=== PATIENT | male | born 1995 | race Caucasian/White ===

== ENCOUNTER 2022-12-09 09:18 | Outpatient (CLI) | payer OTHER ==
[2022-12-09 10:08] VITALS: BP 122/78
--- NOTE | 2022-12-09 10:08 | SLEEP CARE CONSULTATION ---
Information from patient questionnaire entered by Sherron Horton. I have reviewed and concur with the information entered by Sherron Horton. This document represents the service I personally performed and the decisions made by me, Vianney Velez ARNP. History of Present Illness Service Date and Time: 12/09/2022 0918 Reason for Visit: New patient Chief Complaint: reports: Unrefreshed sleep, Snoring, Fatigue Date of Onset: 04/2021 Usual bedtime: 2200 Time it takes to fall asleep: 30-60MIN Snores at night: Yes Observed to quit breathing while asleep: Yes Sleeps alone due to snoring: No Number of times waking at night: 3-4 Reasons for waking at night: reports: Snoring, Gasping for air (infrequent with snoring), Other (UNKNOWN). denies: Choking Toss, Turn, or Twitch while sleeping: No Recalls having dreams: Yes Usually gets out of bed at: 0700, sometimes earlier for work Feels refreshed in the morning: No Morning headache: Yes (1 time a week; RESOLVES 1-2HRS) Sleepy or fatigued during the day: Yes Ever fallen asleep while driving: No Takes day naps: Yes (2-3 times a week; lasts 1 hr or less) Dreams during day naps: Yes Prior sleep studies: No Additional HPI information: I had the pleasure of seeing OMID SANDY today regarding the possibility of him having a sleep disorder. His current complaints are snoring, unrefreshed sleep, fatigue and observed pauses in breathing. He states he was in the hospital last April and his oxygen keep going too low. He was told that he snores loudly. He is waking up at least 2 times a night and is more tired during the day. He is waking up unrefreshed. He feels he mouth breathes at night especially when he sleeps on his back. He does not feel he can breathe through his nose very well. 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 Patient is Single and lives in . Have you smoked in the past 12 months: No Alcohol use: Yes Alcohol amount and frequency: 1-2 DRINKS ONCE A MONTH Caffeine use: Yes Caffeine amount and frequency: 3-4 ALMOST DAILY Family History Family history of sleep disordered breathing: Yes Family Hx Sleep Apnea: Father: Snoring, Sleep apnea - Treated Allergies and Home Medications Known drug allergies: No Drug allergies reviewed: Yes (NKDA) Home medication list reviewed: Yes (no daily medications) Review of Systems Weight gain over past 5 years: 10 Cardiovascular: denies: high blood pressure Gastrointestinal: reports: abdominal pain. denies: heartburn, difficulty swallowing Neurological: denies: head trauma Psychiatric: reports: depression Ear/Nose/Throat: reports: nasal congestion, dry mouth/throat, injury to nose. denies: tonsillectomy Endocrine: reports: sluggishness Physical Exam Vital signs obtained and entered by: SHERRON Hirsch MA Blood Pressure: 122/78 (LEFT ARM) Cuff size: regular Heart Rate: 77 O2 Saturation: 98 Height: 5 ft 11 in Weight: 159 lb 12.8 oz Body Mass Index: 22.3 BMI Classification: Normal Neck circumference: 14.75 Mouth and throat: narrow oropharynx Soft palate: long Hard palate: normal Uvula: long Uvula visualization: 25% Mallampati Class III Tongue: normal in size Tonsils: 2+ Neck: normal w/o lymphadenopathy or thyromegaly Heart: regular rate and rhythm Lungs: clear bilaterally Impression and Plan 1. Suspected Obstructive Sleep Apnea-Hypopnea Syndrome, as suggested by a history of loud and irregular snoring, observed cessation of breath while asleep, gasping or choking in sleep, morning headache, unrefreshed sleep, and excessive daytime sleepiness with [place] 12/24. Narrow oropharynx and obesity are common predisposing factors for obstructive sleep apnea-hypopnea syndrome. I recommend proceeding to polysomnography to confirm the diagnosis and to assess severity. If the patient has significant sleep disordered breathing, a manual C PAP titration study will also be performed to find the optimal treatment pressure. I informed the patient of what the sleep studies involve and after some discussion, obtained agreement to proceed. The pathophysiology of obstructive sleep apnea-hypopnea syndrome was discussed with the patient and health risks of cardiovascular and cerebrovascular disease if not treated. 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 Patient agreed to plan. * Schedule polysomnography * Avoid long distance driving or driving when feeling sleepy. * Avoid alcohol, sedative and muscle relaxant around bedtime. * Attempt to lose weight. * Review instructions provided by trained office staff on how to prepare for the sleep study.k * Return for follow-up after sleep study completed. Counseling Topics: Weight control Visit Type: In Office Time Spent with Patient (minutes): 30 Provider Statement: I spent 100% of the Face to Face Visit with the patient with greater than 50% spent counseling the patient and coordination of care.
== END 2022-12-09 09:19 | disposition home or self-care (01) ==
LOC: SC 09:18
PROVIDERS: ATTEND Nurse Practitioner Family
DX: R06.83 Snoring (principal); R06.81 Apnea, not elsewhere classified; R51.9 Headache, unspecified; G47.10 Hypersomnia, unspecified; G47.8 Other sleep disorders
CPT/HCPCS: 99203; 99212

== ENCOUNTER 2022-12-23 09:06 | Outpatient (CLI) | payer OTHER | END 2022-12-23 09:07 | disposition home or self-care (01) | LOC: SC 09:06 | PROVIDERS: ATTEND Nurse Practitioner Family | DX: G47.33 Obstructive sleep apnea (adult) (pediatric) (principal); R09.02 Hypoxemia; R00.0 Tachycardia, unspecified | CPT/HCPCS: 95806 ==

== ENCOUNTER 2023-01-26 14:24 | Outpatient (CLI) | payer OTHER ==
[2023-01-26 14:50] VITALS: BP 122/78
--- NOTE | 2023-01-26 14:50 | SLEEP CARE CONSULTATION ---
Information from patient questionnaire entered by Evelyn Horton. I have reviewed and concur with the information entered by Evelyn Horton. This document represents the service I personally performed and the decisions made by , Vianney Velez ARNP. History of Present Illness Service Date and Time: 01/26/2023 142 Initial [place] Sleepiness Scale score: 12 (11/23/22) Current [place] Sleepiness Scale score: 14 (01/26/23) Additional HPI information: OMID SANDY returns for follow up and results of the recently performed home sleep study. I explained the pathophysiology behind obstructive sleep apnea. We then spent quite a bit of time discussing different treatment options. For mild obstructive sleep apnea, surgery and oral appliance are alternatives to nasal CPAP therapy but in moderate or severe cases, nasal CPAP is the most effective and reliable treatment. I reviewed the impact of weight changes on sleep apnea. Patient counseled not drink alcohol less than 4 hours before bedtime as it can increase snoring and apnea. Patient was cautioned about risks of drowsy driving until sleepiness symptoms resolve. Patient denies drowsy driving. Sleep Study - Results Type of Sleep Study: Home sleep study (COMPLETED 12/23/22) Prior sleep studies: No Polysomnography/Home Sleep Study results: Physician Impression: The quality of the study is good. The length of the study is adequate (> 240 minutes). Please also see the tabulated and graphic data. 1. Obstructive Sleep Apnea-Hypopnea (ICD-10 G47.33), mild, with an AHI of 7.5/hr and alejandro SaO2 of 88%. During the study, the patient had 52 apneas (52 obstructive, 0 central, 0 mixed) and 22 hypopneas. The longest episode lasted 141.0 seconds. The patient did not sleep supine during this study. 2. Hypoxemia (ICD-10 R09.02), mild, with the lowest oxygen saturation of 88 % and 1.7 minutes with SaO2 under 90%. Baseline oxygen saturation was normal (Average oxygen saturation was 96%). 3. Tachycardia, with maximum recorded heart rate of 144 beats per minute. Allergies and Home Medications Known drug allergies: No Drug allergies reviewed: Yes Home medication list reviewed: Yes (Prazosin, 1 mg-for nightmares) Allergy and home medication list: Allergies No Known Drug Allergies Allergy (Verified 01/25/23 16:43) Review of Systems Review of systems same as previous: Yes (no changes) Physical Exam Vital signs obtained and entered by: EVELYN Hirsch MA Blood Pressure: 122/78 (LEFT ARM) Cuff size: regular Heart Rate: 78 O2 Saturation: 100 Height: 5 ft 11 in Weight: 170 lb Body Mass Index: 23.7 BMI Classification: Normal Impression and Plan 1. Obstructive Sleep Apnea-Hypopnea Syndrome, mild, with lowest oxygen saturation of 88%. Obviously this is the cause of the patients symptoms of unrefreshed sleep, and excessive daytime sleepiness. Positive pressure therapy could benefit depression. The patient chose an oral appliance to treat their apnea. A follow up will be made to see if appliance has reduced symptoms. If so, another polysomnography will be ordered with use of the oral appliance to check efficacy in reducing apnea. 2. Hypoxemia, mild, with the lowest oxygen saturation of 88 % and 1.7 minutes with SaO2 under 90%. His baseline oxygen saturation was normal with an average oxygen saturation of 96%. 3. Tachycardia, with maximum recorded heart rate of 144 beats per minute. Patient advised to follow up with PCP for possible cardiac monitoring due to tachycardia. He voiced understanding. * Oral appliance. * Maintain healthy weight * Avoid alcohol consumption near bedtime. * The patient is again cautioned about driving until sleepiness completely resolves. * Return one month after oral appliance obtained. I will assess response to therapy at that time. Counseling Topics: Weight control Visit Type: In Office Time Spent with Patient (minutes): 20 Provider Statement: I spent 100% of the Face to Face Visit with the patient with greater than 50% spent counseling the patient and coordination of care.
== END 2023-01-26 14:25 | disposition home or self-care (01) ==
LOC: SC 14:24
PROVIDERS: ATTEND Nurse Practitioner Family
DX: G47.33 Obstructive sleep apnea (adult) (pediatric) (principal); R09.02 Hypoxemia; R00.0 Tachycardia, unspecified
CPT/HCPCS: 99212; 99213